=== PATIENT | female | born 1955 | race Asian ===

== ENCOUNTER 2018-07-04 07:56 | Day surgery (SDC) | payer MEDICAID ==
[~2018-07-04] VITALS: Ht 150 cm; Wt 43.1 kg
[2018-07-04] MEDS ORDERED: LIDOCAINE 2% 100 MG/5 ML UJET TP ONE (10:17)
[2018-07-04] MEDS ORDERED: MIDAZOLAM 2 MG/2 ML VIAL ONE (10:17)
[2018-07-04] MEDS ORDERED: fentaNYL 0.05 MG/ML VIAL ONE (10:17)
[2018-07-04] MEDS ORDERED: fentaNYL 0.05 MG/ML VIAL IVP ONE (13:25)
[2018-07-04] MEDS ORDERED: MIDAZOLAM 2 MG/2 ML VIAL IVP ONE (13:25)
== END 2018-07-04 11:53 | disposition home or self-care (01) ==
LOC: MMU 07:56 → MDS 07:56
PROVIDERS: ATTEND Internal Medicine Gastroenterology
DX: Z12.11 Encounter for screening for malignant neoplasm of colon (principal); K29.50 Unspecified chronic gastritis without bleeding; B96.81 Helicobacter pylori [H. pylori] as the cause of diseases classified elsewhere; K29.70 Gastritis, unspecified, without bleeding; K21.0 Gastro-esophageal reflux disease with esophagitis; E78.5 Hyperlipidemia, unspecified; Z79.899 Other long term (current) drug therapy
CPT/HCPCS: 43239; 45378; 88305; 88312; 88313; J2250; J3010